=== PATIENT | male | born 1975 | race African-American/Black ===

== ENCOUNTER 2017-03-01 11:02 | Emergency (ER) | payer OTHER ==
[~2017-03-01] VITALS: Ht 188 cm; Wt 76.4 kg
[~2017-03-01 11:02] MED LIST: ADVAIR 500/28 DISKUS IH; ALBUTEROL0.09 MG/A1 IH; ALLEGRA180 MG PO; AMBIEN 10MG10 MG PO; CELEXA40 MG PO; CLINORIL 1150 MG/TAB PO; COLACE 100100 MG/CAP PO; FERROUS SU325 MG/TAB PO; FISH OIL1 IU PO; FLEXERIL10 MG PO; HCTZ 25MG25 MG PO; IBU800 M1 PO; NORCO 325 MG-7.1 TAB PO; OSCAL 500MG/VI500 MG PO; PENTASA; PERCOCET 325 MG1 TA2 PO; PERCOCET 5/321 UDTAB PO; PREDNISONE20 MG PO; SOMA 350MG350 MG/TAB PO
[2017-03-01 11:12] VITALS: TEMP 98
[2017-03-01 11:57] LABS: BASO % 0.7 % (0.0-2.0); EOS # 0.1 (0.0-0.7); EOS % 2.1 % (0-4.0); GRAN # 3.9 (1.4-6.5); GRAN % 67.4 % (42.2-75.2); LYMPH # 1.3 (1.2-3.4); LYMPH % 21.8 % (20.0-51.0); MEAN CELL VOLUME 70 fl (80.0-100.0); MEAN CORPUSCULAR HGB CONC 29 g/dl (33.0-37.0); MEAN PLATELET VOLUME 9.9 fl (7.4-10.4); MONO # 0.5 (0.1-0.6); MONO % 7.8 % (1.7-9.3); PLATELET COUNT 308 K/mm3 (130-400); RED BLOOD COUNT 4.49 M/mm3 (4.20-5.60); REDCELL DISTRIBUTION WIDTH-CV 21.2 % (11.5-14.5); WHITE BLOOD COUNT 5.8 K/mm3 (4.8-10.8)
[2017-03-01 12:06] LABS: CREATININE, serum 0.87 mg/dL (0.66-1.25); POTASSIUM 3.8 mmol/L (3.4-5.0)
[2017-03-01 12:22] LABS: HEMATOCRIT 31.5 % (42.0-52.0); HEMOGLOBIN 9.1 g/dl (13.5-18.0); MEAN CORPUSCULAR HEMOGLOBIN 20 pg (27.0-31.0)
[2017-03-01 14:39] VITALS: BP 143/104; PULSE 73
== END 2017-03-01 13:53 | disposition home or self-care (01) ==
LOC: COL.ER 11:02
PROVIDERS: Emergency Medicine
DX: D64.9 Anemia, unspecified (principal); I10 Essential (primary) hypertension; J45.909 Unspecified asthma, uncomplicated; K50.90 Crohn's disease, unspecified, without complications; Z98.890 Other specified postprocedural states

== ENCOUNTER 2017-12-12 18:43 | Emergency (ER) | payer OTHER ==
[~2017-12-12] VITALS: Ht 182.9 cm; Wt 77.3 kg
[2017-12-12 18:49] VITALS: TEMP 98.2
[2017-12-12 19:10] LABS: COLLECTION METHOD CLEAN CATCH
[2017-12-12 19:22] LABS: MUCOUS Present /lpf; PH 5 (5-8); SQUAMOUS EPITHELIAL None Seen /hpf; URINE APPEARANCE Cloudy; URINE BACTERIA Rare /hpf; URINE BILIRUBIN Negative (NEGATIVE); URINE BLOOD Negative (NEGATIVE); URINE COLOR Yellow; URINE GLUCOSE Negative (NEGATIVE); URINE KETONE Trace (NEGATIVE); URINE LEUKOCYTE ESTERASE Negative (NEGATIVE); URINE NITRATE Negative (NEGATIVE); URINE PROTEIN(semi-quant) 1+ (NEGATIVE); URINE RBC 20-50 /hpf
[2017-12-12 20:06] LABS: TRICYCLIC ANTIDEPRESS URINE NEGATIVE
[2017-12-12 20:29] LABS: BASO # 0.1 (0.0-0.2); EOS # 0.1 (0.0-0.7); EOS % 1.3 % (0-4.0); GRAN # 4.1 (1.4-6.5); GRAN % 59.6 % (42.2-75.2); LYMPH % 28.7 % (20.0-51.0); MEAN CELL VOLUME 71 fl (80.0-100.0); MEAN CORPUSCULAR HGB CONC 29 g/dl (33.0-37.0); MEAN PLATELET VOLUME 9.6 fl (7.4-10.4); MONO # 0.6 (0.1-0.6); MONO % 9.3 % (1.7-9.3); PLATELET COUNT 170 K/mm3 (130-400); RED BLOOD COUNT 4.28 M/mm3 (4.20-5.60); REDCELL DISTRIBUTION WIDTH-CV 21.7 % (11.5-14.5)
[2017-12-12 20:30] LABS: HEMOGLOBIN 8.9 g/dl (13.5-18.0); MEAN CORPUSCULAR HEMOGLOBIN 21 pg (27.0-31.0)
[2017-12-12] MEDS ORDERED: CIPRO 500MG TA500 MG PO (20:30)
[2017-12-12] MEDS ORDERED: FLEXERIL 1010 MG/TAB PO (20:30)
[2017-12-12] MEDS ORDERED: VOLTAREN 75 DR75 MG PO (20:30)
[2017-12-12 20:31] LABS: HEMATOCRIT 30.5 % (42.0-52.0)
[2017-12-12 20:37] LABS: ALBUMIN 4.4 gm/dL (3.5-5.0); BILIRUBIN,TOTAL 0.9 mg/dL (0.0-1.0); CALCIUM 9.7 mg/dL (8.4-10.2); CREATININE, serum 1.14 mg/dL (0.66-1.25); POTASSIUM 3.8 mmol/L (3.4-5.0); TOTAL PROTEIN 9.4 gm/dL (6.4-8.2)
[2017-12-12 22:55] VITALS: BP 161/107; PULSE 95
== END 2017-12-12 22:01 | disposition home or self-care (01) ==
LOC: COL.ER 18:43
PROVIDERS: Emergency Medicine
DX: S39.012A Strain of muscle, fascia and tendon of lower back, initial encounter (principal); N30.90 Cystitis, unspecified without hematuria; X50.0XXA Overexertion from strenuous movement or load, initial encounter
CPT/HCPCS: J1885; J2765; J3010; J7030

== ENCOUNTER 2018-10-05 11:21 | Emergency (ER) | payer OTHER ==
[~2018-10-05] VITALS: Ht 185.4 cm; Wt 68.2 kg
[~2018-10-05 11:21] MED LIST changes: +CIPRO 500MG TA500 MG PO; +FLEXERIL 1010 MG/TAB PO; +VOLTAREN 75 DR75 MG PO
[2018-10-05 12:09] LABS: BASO # 0.1 (0.0-0.2); BASO % 1.1 % (0.0-2.0); EOS # 0.1 (0.0-0.7); EOS % 1.4 % (0-4.0); GRAN # 2.5 (1.4-6.5); GRAN % 57.1 % (42.2-75.2); HEMOGLOBIN 10.1 g/dl (13.5-18.0); LYMPH # 1.2 (1.2-3.4); LYMPH % 27.8 % (20.0-51.0); MEAN CELL VOLUME 82 fl (80.0-100.0); MEAN CORPUSCULAR HEMOGLOBIN 25 pg (27.0-31.0); MEAN CORPUSCULAR HGB CONC 30 g/dl (33.0-37.0); MEAN PLATELET VOLUME 9.6 fl (7.4-10.4); MONO # 0.6 (0.1-0.6); MONO % 12.4 % (1.7-9.3); PLATELET COUNT 543 K/mm3 (130-400); REDCELL DISTRIBUTION WIDTH-CV 28.1 % (11.5-14.5)
[2018-10-05 12:11] LABS: HEMATOCRIT 33.4 % (42.0-52.0)
[2018-10-05 12:18] LABS: ALBUMIN 4.2 gm/dL (3.5-5.0); CALCIUM 9.1 mg/dL (8.4-10.2); CREATININE, serum 0.8 mg/dL (0.66-1.25); POTASSIUM 4.1 mmol/L (3.4-5.0); TOTAL PROTEIN 7.4 gm/dL (6.4-8.2)
[2018-10-05] MEDS ORDERED: COLACE 100100 MG/CAP PO (15:08)
[2018-10-05 15:42] VITALS: BP 162/97; PULSE 95; TEMP 98.3
== END 2018-10-05 15:42 | disposition home or self-care (01) ==
LOC: COL.ER 11:21
PROVIDERS: Emergency Medicine
DX: K64.5 Perianal venous thrombosis (principal); K50.90 Crohn's disease, unspecified, without complications; Z79.51 Long term (current) use of inhaled steroids
CPT/HCPCS: J1170; J1885; J2060; J7030

== ENCOUNTER 2018-10-26 08:48 | Day surgery (SDC) | payer OTHER ==
[~2018-10-26] VITALS: Ht 185.4 cm; Wt 66.5 kg
[2018-10-26 09:43] VITALS: BP 148/107; PULSE 109; TEMP 98.3
[2018-10-26 11:45] VITALS: BP 150/104; PULSE 123; TEMP 98
--- NOTE | 2018-10-26 11:45 | NUR ---
PT TO BAY 1 ON CART FROM PROCEDURE ROOM WITH NURSE. PT DENIES C/O. VITAL SIGNS STABLE. CALL LIGHT NEXT TO PT.
[2018-10-26 12:00] VITALS: BP 147/105; PULSE 89
[2018-10-26 12:15] VITALS: BP 144/104; PULSE 89
--- NOTE | 2018-10-26 12:15 | NUR ---
PT CONTINUES TO DENY C/O. VITAL SIGNS STABLE. DISCHARGE INSTRUCTIONS REVIEWED WITH PT. PT VERBALIZES UNDERSTANDING. PT WHEELCHAIR RIDE TO HOME BY CAB.
[2018-10-26 12:33] VITALS: BP 129/78; PULSE 90
== END 2018-10-26 12:15 | disposition home or self-care (01) ==
LOC: SDCO 08:48
DX: D50.9 Iron deficiency anemia, unspecified (principal); K50.90 Crohn's disease, unspecified, without complications; Z79.899 Other long term (current) drug therapy; Z79.82 Long term (current) use of aspirin; E78.00 Pure hypercholesterolemia, unspecified; Z87.891 Personal history of nicotine dependence; K50.80 Crohn's disease of both small and large intestine without complications; Z87.11 Personal history of peptic ulcer disease
CPT/HCPCS: J2250; J3010; J7030

== ENCOUNTER 2019-09-11 05:23 | Emergency (ER) | payer OTHER ==
[~2019-09-11] VITALS: Ht 185.4 cm; Wt 75.0 kg
[2019-09-11 05:28] VITALS: BP 145/86; TEMP 100.2
[2019-09-11] MEDS ORDERED: TAMIFLU 75MG75 MG PO (06:32)
[2019-09-11] MEDS ORDERED: NORVASC 10MG10 MG PO (06:39)
[2019-09-11] MEDS ORDERED: PRINIVIL10 MG PO (06:39)
[2019-09-11] MEDS ORDERED: DELZICOL PO (06:40)
[2019-09-11 07:00] LABS: HEMOGLOBIN 10.7 g/dl (13.5-18.0); MEAN CELL VOLUME 89 fl (80.0-100.0); MEAN CORPUSCULAR HEMOGLOBIN 29 pg (27.0-31.0); MEAN CORPUSCULAR HGB CONC 33 g/dl (33.0-37.0); MEAN PLATELET VOLUME 10.4 fl (7.4-10.4); PLATELET COUNT 166 K/mm3 (130-400); RED BLOOD COUNT 3.64 M/mm3 (4.20-5.60); REDCELL DISTRIBUTION WIDTH-CV 12.6 % (11.5-14.5)
[2019-09-11 07:05] LABS: ALBUMIN 4.2 gm/dL (3.5-5.0); BILIRUBIN,TOTAL 0.6 mg/dL (0.0-1.0); CALCIUM 9.1 mg/dL (8.4-10.2); CREATININE, serum 0.99 (0.66-1.25); TOTAL PROTEIN 7.6 gm/dL (6.4-8.2)
[2019-09-11 07:23] LABS: HEMATOCRIT 32.2 % (42.0-52.0)
[2019-09-11 07:30] LABS: BAND 13 % (0-10); BASOPHIL 2 % (0-2); LYMPHOCYTE 20 % (20.0-51.0); NEUTROPHILS 51 % (42.0-75.2); PLATELET ESTIMATE NORMAL (NORMAL)
[2019-09-11 07:55] VITALS: PULSE 106
== END 2019-09-11 07:55 | disposition home or self-care (01) ==
LOC: COL.ER 05:23
PROVIDERS: Emergency Medicine
DX: J09.X2 Influenza due to identified novel influenza A virus with other respiratory manifestations (principal); J45.909 Unspecified asthma, uncomplicated; K50.90 Crohn's disease, unspecified, without complications
CPT/HCPCS: J7030

== ENCOUNTER 2021-09-09 17:23 | Emergency (ER) | payer OTHER, MEDICARE ==
[~2021-09-09] VITALS: Ht 182.9 cm; Wt 71.8 kg
[~2021-09-09 17:23] MED LIST changes: +DELZICOL PO; +NORVASC 10MG10 MG PO; +PRINIVIL10 MG PO; +TAMIFLU 75MG75 MG PO
[2021-09-09 17:35] VITALS: TEMP 98.7
[2021-09-09 18:54] LABS: BASO % 0.3 % (0.0-2.0); EOS % 0.3 % (0.0-4.0); GRAN # 2.4 K/mm3 (1.4-6.5); GRAN % 63.8 % (42.2-75.2); HEMATOCRIT 37.5 % (42.0-52.0); LYMPH # 0.8 K/mm3 (1.2-3.4); LYMPH % 20.3 % (20.0-51.0); MEAN CELL VOLUME 92 fl (80.0-100.0); MEAN CORPUSCULAR HEMOGLOBIN 32 pg (27-31); MEAN CORPUSCULAR HGB CONC 35 g/dl (33.0-37.0); MEAN PLATELET VOLUME 9.8 fl (7.4-10.4); MONO # 0.6 K/mm3 (0.1-0.6); PLATELET COUNT 207 K/mm3 (130-400); REDCELL DISTRIBUTION WIDTH-CV 12.8 % (11.5-14.5)
[2021-09-09 19:07] LABS: ALBUMIN 3.8 gm/dL (3.5-5.0); BILIRUBIN,TOTAL 0.8 mg/dL (0.2-1.2); CALCIUM 9.5 mg/dL (8.4-10.2); POTASSIUM 3.9 mmol/L (3.5-4.5); TOTAL PROTEIN 7.2 gm/dL (6.2-8.1)
[2021-09-09 20:40] VITALS: BP 133/112; PULSE 81
[2021-09-09] MEDS ORDERED: ANUSOL-HC SUPPO25 MG RC (20:40)
== END 2021-09-09 20:48 | disposition home or self-care (01) ==
LOC: COL.ER 17:23
PROVIDERS: Nurse Practitioner Primary Care
DX: K64.5 Perianal venous thrombosis (principal); J45.909 Unspecified asthma, uncomplicated; Z79.899 Other long term (current) drug therapy
CPT/HCPCS: J2270; Q9967